=== PATIENT | male | born 1960 | race Hispanic/Latino ===

== ENCOUNTER → 2025-06-22 | Day surgery (SDC) | payer OTHER ==
[~2025-06-22] MED LIST: FENTANYL CITRATE/PF 100MCG/2 ML INJ ONE; HYOSCYAMINE SULFATE 0.5 MG/ML INJ ONE; LEVOTHYROXINE100 MC1 PO; LIDOCAINE HCL 2% LOCAL INJ 5 ML SDV VIAL INJ ONE; MIDAZOLAM HCL 2 MG/2 ML VIAL ONE; PHENYLEPHRINE HCL 1% 10 MG/ML VIAL ONE; PROPOFOL IV EMULSION 50 ML IV ONE; VENTOLIN HFA18 GM INH
[2025-06-22] MEDS: LACTATED RINGER'S 1,000 ML ONE (12:07)
[2025-06-22 13:51] VITALS: TEMP 97.5
[2025-06-22 14:35] VITALS: BP 120/90; PULSE 67; RESP 16; O2SAT 99
== END | disposition home or self-care (01) ==
LOC: OR 11:20
PROVIDERS: ATTEND Internal Medicine Gastroenterology
DX: Z12.11 Encounter for screening for malignant neoplasm of colon (principal); K22.10 Ulcer of esophagus without bleeding; K29.50 Unspecified chronic gastritis without bleeding; K44.9 Diaphragmatic hernia without obstruction or gangrene; K64.8 Other hemorrhoids; I25.2 Old myocardial infarction; E03.9 Hypothyroidism, unspecified; J30.2 Other seasonal allergic rhinitis; Z79.890 Hormone replacement therapy; Z79.899 Other long term (current) drug therapy; Z87.891 Personal history of nicotine dependence; Z01.810 Encounter for preprocedural cardiovascular examination
CPT/HCPCS: 43239; 45378; 93005; J1980; J2003; J2371; J2470; J2704; J3010; J7121; J2250